=== PATIENT | female | born 1995 | race Caucasian/White ===

== ENCOUNTER 2018-09-23 17:15 | Emergency (ER) | payer MEDICAID ==
[~2018-09-23] VITALS: Ht 177.8 cm; Wt 89.4 kg
[2018-09-23 17:23] VITALS: BP 119/72
[2018-09-23] MEDS ORDERED: NKM (17:28)
--- NOTE | 2018-09-23 17:35 | NUR ---
ED Nurse Note: Pt. AAOx4. ambulatory. Came in to ER due to constipation x 2 weeks. pt stated she is able to have a BM but doesnt feel like she was able to defecate everything
--- NOTE | 2018-09-23 18:29 | Emergency Room Report ---
History of Present Illness General Chief Complaint: Constipation Present Illness HPI 23 YO Female presents to the ED c/o constipation and feeling abdominal fullness. x 1 month. pt. reports 2/10 in severity discomfort. She states in the past she would have intermittent episodes of diarrhea for several days and cycle to constipation. pt. states she used a laxative suppository which provided her the most relief, but her symptoms returned. She denies fevers, chills, nausea, vomiting, pelvic pain or vaginal discharge. Patient denies blood in the stool or dark tarry stools. Patient denies sensation of symptoms. Patient denies dysuria, hematuria or urinary frequency. Patient denies suspicion of . She denies any additional aggravating or relieving factors otherwise. Allergies: Coded Allergies: No Known Allergies (Unverified , 09/23/18) Patient History Past Medical History: see triage record Past Surgical History: none Pertinent Family History: none Last Menstrual Period: aug 19, 2018 Now: No : 0 Reviewed Nursing Documentation: PMH: Agreed; PSxH: Agreed Review of Systems All Other Systems: negative except mentioned in HPI Physical Exam Vital Signs Date Time Temp Pulse Resp B/P (MAP) Pulse Ox O2 Delivery O2 Flow Rate FiO2 09/23/18 17:23 98.4 90 16 119/72 98 Room Air Sp02 EP Interpretation: reviewed, normal General Appearance: no apparent distress, alert, GCS 15, non-toxic Head: normocephalic, atraumatic Eyes: bilateral eye normal inspection, bilateral eye PERRL ENT: hearing grossly normal, normal voice Neck: full range of motion Respiratory: lungs clear, normal breath sounds, speaking full sentences Cardiovascular #1: regular rate, rhythm Gastrointestinal: normal bowel sounds, non tender, soft, non-distended, no guarding Rectal: deferred Genitourinary: normal inspection, no CVA tenderness, adnexa normal Musculoskeletal: back normal, gait/station normal, normal range of motion, non- tender Neurologic: alert, oriented x3, responsive, motor strength/tone normal, sensory intact, speech normal, grossly normal Psychiatric: judgement/insight normal Skin: normal color, no rash, warm/dry, well hydrated Medical Decision Making PA Attestation Dr. Kumar is my supervising Physician whom patient management has been discussed with. Diagnostic Impression: Primary Impression: Constipation Qualified Codes: K59.00 - Constipation, unspecified Additional Impression: Abdominal fullness ER Course 23 YO Female presents to the ED c/o constipation and feeling abdominal fullness. x 1 month. pt. reports 2/10 in severity discomfort. She states in the past she would have intermittent episodes of diarrhea for several days and cycle to constipation. pt. states she used a laxative suppository which provided her the most relief, but her symptoms returned. She denies fevers, chills, nausea, vomiting, pelvic pain or vaginal discharge. Patient denies blood in the stool or dark tarry stools. Patient denies sensation of symptoms. Patient denies dysuria, hematuria or urinary frequency. Patient denies suspicion of . She denies any additional aggravating or relieving factors otherwise. Ddx considered but are not limited to constipation , appendicitis, SBO, ectopic , PID, tubo-ovarian abscess. Vital signs: are WNL, pt. is afebrile H&PE are most consistent with constipation. bowl sounds are normo active. NO evidence of acute abdomen at this time. ORDERS: -UA: Unremarkable -Urine Hcg: negative ED INTERVENTIONS: Pt. educated on hydration and increased fiber intake. This pt. is stable for close outpatient follow up of her symptoms. DISCHARGE: At this time pt. is stable for d/c to home. Will provide printed patient care instructions, and any necessary prescriptions. Care plan and follow up instructions have been discussed with the patient prior to discharge. Labs Test 09/23/18 18:08 Urine Color Pale yellow Urine Appearance Clear Urine pH 5 (4.5-8.0) Urine Specific [place] 1.005 (1.005-1.035) Urine Protein Negative (NEGATIVE) Urine Glucose (UA) Negative (NEGATIVE) Urine Ketones 1+ (NEGATIVE) Urine Blood 5+ (NEGATIVE) Urine Nitrite Negative (NEGATIVE) Urine Bilirubin Negative (NEGATIVE) Urine Urobilinogen Normal MG/DL (0.0-1.0) Urine Leukocyte Esterase Negative (NEGATIVE) Urine RBC 2-4 /HPF (0 - 2) Urine WBC 0-2 /HPF (0 - 2) Urine Squamous Epithelial Cells Few /LPF (NONE/OCC) Urine Bacteria Few /HPF (NONE) Urine HCG, Qualitative Negative (NEGATIVE) Last Vital Signs Date Time Temp Pulse Resp B/P (MAP) Pulse Ox O2 Delivery O2 Flow Rate FiO2 09/23/18 17:23 98.4 90 16 98 Room Air 09/23/18 17:23 119/72 Status: improved Disposition: HOME, SELF-CARE Condition: Stable Scripts Psyllium Husk (PSYLLIUM FIBER) 0.52 Gm Capsule 0.52 GM PO Q6HR, #30 CAP Prov: Yashira Kim 09/23/18 Docusate Sodium* (COLACE*) 100 Mg Capsule 100 MG ORAL THREE TIMES A DAY for 14 Days, #42 CAP Prov: Yashira Kim 09/23/18 Simethicone (ANTI-GAS) 166 Mg Capsule 166 MG PO Q8HR, #20 CAP Prov: Yashira Kim 09/23/18 Patient Instructions: Constipation, Adult Additional Instructions: Take medications as directed. Follow up with a Primary Care Provider in 3-5 days, even if your symptoms have resolved. --Please review list of primary care clinics, if you do not already have a primary care provider Return sooner to ED if new symptoms occur, or current symptoms become worse. - Please note that this Emergency Department Report was dictated using [employer] account executive technology software, occasionally this can lead to erroneous entry secondary to interpretation by the dictation equipment. Yashira Kim September 23, 2018 18:29
[2018-09-23 18:39] LABS: APPEARANCE,URINE CLEAR; BILIRUBIN, URINE NEGATIVE (NEGATIVE); COLOR,URINE PALE YELLOW; GLUCOSE, URINE (UA) NEGATIVE (NEGATIVE); KETONES,URINE 1+ (NEGATIVE); LEUKOCYTE ESTERASE ,URINE NEGATIVE (NEGATIVE); NITRITE,URINE NEGATIVE (NEGATIVE); PH,URINE 5 (4.5-8.0); PROTEIN,URINE NEGATIVE (NEGATIVE); UROBILINOGEN,URINE NORMAL MG/DL (0.0-1.0)
[2018-09-23] MEDS ORDERED: PSYLLIUM FIBE0.52 G1 PO (18:42)
[2018-09-23] MEDS ORDERED: ANTI-GAS166 MG PO (18:42)
[2018-09-23] MEDS ORDERED: COLACE100 MG ORAL (18:42)
[2018-09-23 19:02] VITALS: BP 120/69
--- NOTE | 2018-09-23 19:02 | NUR ---
ER DISCHARGE NOTE: Patient is cleared to be discharged per PA, pt is aox4, on room air, with stable vital signs. pt was given dc and prescription instructions, pt was able to verbalize understanding, pt id band removed. pt is able to ambulate with steady gait. pt took all belongings.
== END 2018-09-23 19:03 | disposition home or self-care (01) ==
LOC: EMR 17:54
DX: K59.00 Constipation, unspecified (principal); R10.9 Unspecified abdominal pain
CPT/HCPCS: 81003; 81025; 99283

== ENCOUNTER 2018-11-09 14:11 | Emergency (ER) | payer MEDICAID ==
[~2018-11-09] VITALS: Ht 177.8 cm; Wt 87.5 kg
[~2018-11-09 14:11] MED LIST: ANTI-GAS166 MG PO; COLACE100 MG ORAL; NKM; PSYLLIUM FIBE0.52 G1 PO
[2018-11-09] MEDS ORDERED: VITAMIN D1000 UNI1 ORAL (14:20)
--- NOTE | 2018-11-09 14:21 | NUR ---
ED Nurse Note: Patient walked into ED c/o abdominal pain for 3 months. patient reports right now it's ok, but patient also has some nausea and lightheadedness from time to time. patient is alert awake x4 ambulatory steady gait, breathing unlabored and even.
[2018-11-09 14:26] VITALS: BP 121/71
--- NOTE | 2018-11-09 14:45 | NUR ---
ED Nurse Note: UA sent to lab
--- NOTE | 2018-11-09 15:05 | NUR ---
ED Nurse Note: patient stated that there is no chance that patient would be Nelson from CT also witnessed. patient is taken down to CT with Nelson.
[2018-11-09 15:06] LABS: APPEARANCE,URINE CLEAR; BILIRUBIN, URINE NEGATIVE (NEGATIVE); COLOR,URINE PALE YELLOW; GLUCOSE, URINE (UA) NEGATIVE (NEGATIVE); KETONES,URINE NEGATIVE (NEGATIVE); LEUKOCYTE ESTERASE ,URINE NEGATIVE (NEGATIVE); NITRITE,URINE NEGATIVE (NEGATIVE); PH,URINE 7 (4.5-8.0); PROTEIN,URINE NEGATIVE (NEGATIVE); UROBILINOGEN,URINE NORMAL MG/DL (0.0-1.0)
--- NOTE | 2018-11-09 15:11 | NUR ---
ED Nurse Note: patient came back from CT
--- NOTE | 2018-11-09 15:46 | Diagnostic Imaging Report ---
History: PAIN Exam: CT ABDOMEN + PELVIS Without Contrast Technique more: CTDI is 15.23 mGy and DLP is 855 mGy-cm. Technique more: One or more of the following dose reduction techniques were used: automated exposure control, adjustment of the mA and/or kV according to patient size, use of iterative reconstruction technique. Comparison: None available FINDINGS: The lung bases are clear. Abdominal solid organs, gallbladder and abdominal aorta appear within limits on noncontrast imaging. No renal stones, hydronephrosis or evidence of ureteral or bladder stone. No bowel dilation or free air. Retrocecal appendix appears within limits without secondary signs. Right ovary, uterus and bladder appear unremarkable on noncontrast imaging. 2.4 cm cyst left ovary. Trace pelvic free fluid. Visualized osseous structures appear unremarkable. IMPRESSION: 2.4 cm cyst left ovary. Trace pelvic free fluid.
[2018-11-09] MEDS ORDERED: NAPROXEN500 M2 ORAL (15:53)
[2018-11-09] MEDS ORDERED: ZOFRAN4 M1 ORAL (15:53)
--- NOTE | 2018-11-09 15:53 | Emergency Room Report ---
History of Present Illness General Chief Complaint: Abdominal Pain Source: Patient Present Illness HPI 23-year-old female with history of polycystic ovarian syndrome currently not taking any medication here complaining of 3 months of nonbloody diarrhea and abdominal pain. Patient was here 3 months ago and was diagnosed with constipation. She will follow-up with a primary care provider and had abdominal ultrasound done however abdominal ultrasound was within normal limits she was sent to construction trades contractor as well as decorating supervisor. Patient does not have her appointment with her construction trades contractor until the beginning of December. Patient reports worsening pain in the left suprapubic rating at 5 out of 10 without radiation denying tingling and numbness. Patient reports that she has not had a pelvic ultrasound yet. Also has been complaining of increased and nausea for the past few days denying vomiting. Denies fever and chills, recent medication intake, drug use, and alcohol. Patient is not sexually active and reports that she has never had a Pap smear. Denies chest pain, shortness of breath, palpitation, dizziness, headache, and all other associated symptoms Allergies: Coded Allergies: No Known Allergies (Unverified , 09/23/18) Patient History Past Medical History: see triage record Past Surgical History: unable to obtain Pertinent Family History: none Last Menstrual Period: 11/02/2018 Now: No Reviewed Nursing Documentation: PMH: Agreed; PSxH: Agreed Nursing Documentation-PMH Past Medical History: No History, Except For Review of Systems All Other Systems: negative except mentioned in HPI Physical Exam Vital Signs Date Time Temp Pulse Resp B/P (MAP) Pulse Ox O2 Delivery O2 Flow Rate FiO2 11/09/18 14:15 98.2 91 15 111/73 (86) 100 Room Air Sp02 EP Interpretation: reviewed, normal General Appearance: normal inspection, well appearing, non-toxic Head: normocephalic, atraumatic Eyes: bilateral eye normal inspection, bilateral eye PERRL ENT: normal ENT inspection, normal pharynx Neck: normal inspection, full range of motion, supple Respiratory: normal inspection, chest non-tender, lungs clear, no rhonchi, no respiratory distress, no wheezing Cardiovascular #1: normal inspection, normal peripheral pulses, regular rate, rhythm, no edema, no murmur Gastrointestinal: normal inspection, non tender, soft, no mass, no guarding, no hernia, no pulsatile mass, no rebound Rectal: deferred Genitourinary: normal inspection, no CVA tenderness Musculoskeletal: normal inspection, back normal, digits/nails normal Neurologic: normal inspection, alert, oriented x3, responsive, bottle washer III-XII nml as tested Psychiatric: normal inspection, judgement/insight normal Skin: normal inspection, normal color, no rash, well hydrated Lymphatic: normal inspection, no adenopathy Medical Decision Making PA Attestation All my diagnosis and treatment plans were reviewed ad discussed with my supervising physician Dr. Beard Diagnostic Impression: Primary Impression: Left ovarian cyst ER Course 23-year-old female with history of polycystic ovarian syndrome currently not taking any medication here complaining of 3 months of nonbloody diarrhea and abdominal pain. Patient was here 3 months ago and was diagnosed with constipation. She will follow-up with a primary care provider and had abdominal ultrasound done however abdominal ultrasound was within normal limits she was sent to construction trades contractor as well as decorating supervisor. Patient does not have her appointment with her construction trades contractor until the beginning of December. Patient reports worsening pain in the left suprapubic rating at 5 out of 10 without radiation denying tingling and numbness. Patient reports that she has not had a pelvic ultrasound yet. Also has been complaining of increased and nausea for the past few days denying vomiting. Denies fever and chills, recent medication intake, drug use, and alcohol. Patient is not sexually active and reports that she has never had a Pap smear. Denies chest pain, shortness of breath, palpitation, dizziness, headache, and all other associated symptoms Ddx considered but are not limited to: appendicitis, cholycisitis, gastritis, gasthroentritis, UTI, pylonephritis, SBO, diverticulitis, influenza with GI manifestation, [place], complication with Ovarian cyst, fibroids, ovarian cancer Vital signs: are WNL, pt. is afebrile H&PE are most consistent with: Left ovarian cyst ORDERS: abdominal CT no contrast, UA, urine test, Zofran, naproxen ED INTERVENTIONS: Zofran DISCHARGE: At this time pt. is stable for d/c to home. Will provide printed patient care instructions, and any necessary prescriptions. Care plan and follow up instructions have been discussed with the patient prior to discharge. Patient to follow-up with construction trades contractor regarding 4 cm ovarian cyst as it is most likely relevant to her PCOS CT/MRI/US Diagnostic Results CT/MRI/US Diagnostic Results : Imaging Test Ordered: Abdominal pelvic CT no contrast Impression FINDINGS: The lung bases are clear. Abdominal solid organs, gallbladder and abdominal aorta appear within limits on noncontrast imaging. No renal stones, hydronephrosis or evidence of ureteral or bladder stone. No bowel dilation or free air. Retrocecal appendix appears within limits without secondary signs. Right ovary, uterus and bladder appear unremarkable on noncontrast imaging. 2.4 cm cyst left ovary. Trace pelvic free fluid. Visualized osseous structures appear unremarkable. IMPRESSION: 2.4 cm cyst left ovary. Trace pelvic free fluid. Last Vital Signs Date Time Temp Pulse Resp B/P (MAP) Pulse Ox O2 Delivery O2 Flow Rate FiO2 11/09/18 14:26 98.2 85 16 121/71 99 Room Air Disposition: HOME, SELF-CARE Condition: Stable Scripts Ondansetron (Zofran) 4 Mg Tablet 4 MG ORAL Q6H PRN for Nausea & Vomiting, #15 TAB Prov: Beckie Johnson 11/09/18 Naproxen* (NAPROXEN*) 500 Mg Tablet 500 MG ORAL TWICE A DAY, #30 TAB Prov: Beckie Johnson 11/09/18 Referrals: NOT CHOSEN IPA/MD,REFERRING (PCP) Patient Instructions: Ovarian Cyst, [id number] Additional Instructions: Follow-up with your construction trades contractor for further evaluation of your cyst take medication as directed avoid strenuous physical activity Beckie Johnson Nov 09, 2018 15:53
[2018-11-09 16:00] VITALS: BP 121/71
--- NOTE | 2018-11-09 16:00 | NUR ---
ER DISCHARGE NOTE: Patient is cleared to be discharged per NATE LOZA, pt is aox4, on room air, with stable vital signs. pt was given dc and prescription instructions, pt was able to verbalize understanding, pt id band removed without complications. pt is able to ambulate with steady gait. pt took all belongings.
== END 2018-11-09 16:00 | disposition home or self-care (01) ==
LOC: EMR 14:42
DX: N83.202 Unspecified ovarian cyst, left side (principal)
CPT/HCPCS: 74176; 81001; 81025; 99284

== ENCOUNTER 2019-06-30 18:26 | Emergency (ER) | payer MEDICAID ==
[~2019-06-30] VITALS: Ht 177.8 cm; Wt 83.9 kg
[~2019-06-30 18:26] MED LIST changes: +NAPROXEN500 M2 ORAL; +VITAMIN D1000 UNI1 ORAL; +ZOFRAN4 M1 ORAL
[2019-06-30 18:43] VITALS: BP 128/87
--- NOTE | 2019-06-30 18:43 | NUR ---
ED Nurse Note: upper epigastric pain and feeling dyspnea. has had cough x 2 weeks, intermittantly throughout the day. is recently getting stomach flu
--- NOTE | 2019-06-30 19:50 | Emergency Room Report ---
History of Present Illness General Chief Complaint: Pain Source: Patient Present Illness HPI 24-year-old female with history of anxiety presents with chest pain for the past 3 days. Patient reports that she has been having a cough for the past few months which has not resolved since she had a cold. She denies any shortness of breath. She reports mild nausea but no vomiting or fever. No history of recent travel or surgery. No history of DVT or PE. Patient not using any hormones. No leg swelling. No hemoptysis. Patient has taken ibuprofen with mild relief. Allergies: Coded Allergies: No Known Allergies (Unverified , 09/23/18) Patient History Past Medical History: see triage record Last Menstrual Period: last week Now: No Reviewed Nursing Documentation: PMH: Agreed; PSxH: Agreed Nursing Documentation-PMH Past Medical History: No History, Except For Review of Systems All Other Systems: negative except mentioned in HPI Physical Exam Vital Signs Date Time Temp Pulse Resp B/P (MAP) Pulse Ox O2 Delivery O2 Flow Rate FiO2 06/30/19 18:33 98.2 93 20 128/87 (101) 100 Room Air Sp02 EP Interpretation: reviewed, normal General Appearance: normal inspection, well appearing, no apparent distress, alert, GCS 15, non-toxic ENT: EOM grossly intact, normal pharynx, normal voice, TMs + canals normal, uvula midline Neck: normal inspection, full range of motion, supple, thyroid normal, no meningismus, no bony tend Respiratory: chest non-tender, lungs clear, normal breath sounds, no respiratory distress Cardiovascular #1: normal peripheral pulses, regular rate, rhythm Cardiovascular #2: 2+ radial (R), 2+ radial (L) Gastrointestinal: normal inspection, normal bowel sounds, non tender, soft, no mass, no organomegaly, no guarding, no rebound Musculoskeletal: normal inspection, normal range of motion, no calf tenderness , gait/station normal, non-tender Neurologic: alert, motor strength/tone normal, projects manager III-XII nml as tested, oriented x3, sensory intact, speech normal Psychiatric: judgement/insight normal, mood/affect normal Skin: no rash, normal color, warm/dry Lymphatic: no adenopathy Medical Decision Making PA Attestation Dr. Barone is my supervising physician whom patient management and care has been discussed with. Diagnostic Impression: Primary Impression: Costochondritis Additional Impressions: Anxiety Post-nasal drip ER Course Pt. with history of anxiety presents to the ED c/o chest pain for 3 days, cough for 3 months. No fever or other symptoms. Ddx considered but are not limited to ACS/DC, PE, pneumonia, costochondritis, anxiety, pericarditis, bronchitis. Vital signs: are WNL, pt. is afebrile H&PE are most consistent with costochondritis, anxiety. ORDERS: EKG and Chest x-ray WNL. ED INTERVENTIONS: Given 600 mg Ibuprofen. DISCHARGE: EKG and CXR WNL. Patient reports improvement with Ibuprofen. No risk factors for PE and according to PERC patient is very low risk. Likely costrochondritis from many months of coughing and anxiety. Given prescriptions for post nasal drip as well. At this time pt. is stable for d/c to home. Will provide printed patient care instructions, advised follow up with PCP. Care plan and follow up instructions have been discussed with the patient prior to discharge. Return precautions given. Laboratory Tests Test 06/30/19 21:13 Urine HCG, Qualitative Negative (NEGATIVE) EKG Diagnostic Results EKG Time: 19:41 Rate: normal Rhythm: NSR ST Segments: no acute changes ASA given to the pt in ED: No PA Scribe Text This EKG was scribed by Mylene Corea PA-C. Chest X-Ray Diagnostic Results Chest X-Ray Diagnostic Results : Chest X-Ray Ordered: Yes # of Views/Limited/Complete: 1 View Indication: Chest Pain EP Interpretation: Yes PA Xray: Interpretation reviewed, by supervising MD, and agrees with findings. Interpretation: no consolidation, no effusion, no pneumothorax, no acute cardiopulmonary disease Impression: No acute disease Last Vital Signs Date Time Temp Pulse Resp B/P (MAP) Pulse Ox O2 Delivery O2 Flow Rate FiO2 06/30/19 18:43 98.2 91 20 128/87 100 Room Air Disposition: HOME, SELF-CARE Condition: Stable Scripts D-Methorphan Hb/Prometh Hcl* (PROMETHAZINE-DM SYRUP*) 118 Ml Syrup 5 ML ORAL Q4H PRN for For Cough, #120 ML 0 Refills Prov: Mylene Corea N. P.A. 06/30/19 Cetirizine Hcl/Pseudoephedrine (ZYRTEC-D TABLET) 1 Each Tab.er.12h 1 EACH ORAL DAILY, #20 TAB Prov: Mylene Corea. P.Sandee 06/30/19 Fluticasone Propionate (Flonase Allergy Relief) 9.9 Ml [place].susp 9.9 ML NS DAILY, #1 SPRAYS Prov: Mylene Corea. PKait 06/30/19 Mylene Corea PKait Jun 30, 2019 19:50
[2019-06-30] MEDS ORDERED: FLONASE ALLERG9.9 ML NS (21:00)
[2019-06-30] MEDS ORDERED: ZYRTEC-D TABLE1 EACH ORAL (21:00)
[2019-06-30] MEDS ORDERED: PROMETHAZINE-D118 ML ORAL (21:00)
[2019-06-30 21:10] VITALS: BP 128/87
--- NOTE | 2019-06-30 21:10 | NUR ---
ER DISCHARGE NOTE: Patient is cleared to be discharged per ERMD, pt is aox4, on room air, with stable vital signs. pt was given dc and prescription instructions, pt was able to verbalize understanding, pt id band removed. pt is able to ambulate with steady gait. pt took all belongings.
--- NOTE | 2019-07-01 16:16 | Diagnostic Imaging Report ---
Indication: Shortness of breath Technique: One view of the chest Comparison: none Findings: Lungs and pleural spaces are clear. Heart size is normal. Impression: No acute process
== END 2019-06-30 21:10 | disposition home or self-care (01) ==
LOC: EMR 19:00
DX: M94.0 Chondrocostal junction syndrome [Tietze] (principal); F41.9 Anxiety disorder, unspecified; R09.82 Postnasal drip; Z32.02 Encounter for pregnancy test, result negative
CPT/HCPCS: 71045; 81025; 93005; Z7502; 99283